=== PATIENT | male | born 1965 | race African-American/Black ===

== ENCOUNTER 2021-12-05 13:21 | Inpatient (IN) | payer MEDICAID, OTHER ==
[~2021-12-05] VITALS: Ht 182.9 cm; Wt 78.0 kg
[2021-12-05 14:17] LABS: CHLORIDE 107 mEq/L (98-107)
[2021-12-05 14:19] LABS: BASOPHILS % 0.5 % (0.0-2.0); EOSINOPHILS % 1.8 % (0.0-5.0); HEMOGLOBIN. 14.1 g/dL (14.0-18.0); LYMPHOCYTES % 23.4 % (20.0-50.0); MEAN CORPUSCULAR HEMOGLOBIN 29.5 pg (28.0-32.0); MEAN PLATELET VOLUME 8.8 fl (7.4-10.4); MONOCYTES % 9.6 % (2.0-8.0); NEUTROPHILS % 64.7 % (40.0-76.0); PLATELET 221 x1000/uL (130-400); RED BLOOD CELL COUNT 4.77 mill/uL (4.7-6.1); RED CELL DISTRIBUTION WIDTH 13.8 % (11.6-14.6)
[2021-12-05 14:34] LABS: ETHANOL BLOOD < 10 mg/dL
[2021-12-05] MEDS ORDERED: ACETAMINOPHEN 325MG TABLET PO PRN ×2 (19:45)
[2021-12-05] MEDS ORDERED: IPRATROPIUM/ALBUTEROL 0.5-3(2.5)MG/3ML NEB HHN PRN (19:45)
[2021-12-05] MEDS ORDERED: LORAZEPAM 0.5MG TABLET PO PRN (19:45)
[2021-12-05] MEDS ORDERED: HYDROCODONE/ACETAMINOPHEN 5/325MG TABLET PO PRN (19:45)
[2021-12-05] MEDS ORDERED: DOCUSATE SODIUM 100MG CAPSULE PO PRN (19:45)
[2021-12-05] MEDS ORDERED: ONDANSETRON HCL 4MG/2ML INJ IV PRN (19:45)
[2021-12-05] MEDS ORDERED: CLONIDINE 0.1MG TABLET PO PRN (19:45)
[2021-12-05] MEDS ORDERED: NALOXONE HCL 0.4MG/ML VIAL IV PRN (20:00)
[2021-12-05] MEDS ORDERED: RISPERIDONE 0.5MG TABLET PO SCH (20:00)
[2021-12-05 20:32] LABS: CLARITY URINE CLEAR (CLEAR); COLOR URINE YELLOW (YELLOW); KETONES URINE TRACE (NEGATIVE); LEUKOCYTE ESTERASE URINE NEGATIVE (NEGATIVE); NITRITE URINE NEGATIVE (NEGATIVE); OCCULT BLOOD URINE NEGATIVE (NEGATIVE); PH URINE >=9.0 (4.5-8.0); PROTEIN URINE 1+ (NEGATIVE); SPECIFIC GRAVITY URINE 1.029 (1.005-1.030)
[2021-12-05 20:46] LABS: *AMPHETAMINES SCREEN URINE NEGATIVE (NEGATIVE); *BARBITURATES SCREEN URINE NEGATIVE (NEGATIVE); *BENZODIAZEPINES SCREEN URINE NEGATIVE (NEGATIVE); *COCAINE SCREEN URINE NEGATIVE (NEGATIVE); CANNABINOID URINE SCREEN NEGATIVE (NEGATIVE); METHADONE URINE SCREEN NEGATIVE (NEGATIVE); OPIATES URINE SCREEN NEGATIVE (NEGATIVE); PHENCYCLIDINE URINE SCREEN NEGATIVE (NEGATIVE)
[2021-12-06 05:42] LABS: BASOPHILS % 0.6 % (0.0-2.0); EOSINOPHILS % 2.5 % (0.0-5.0); HEMATOCRIT. 40.2 % (42.0-52.0); HEMOGLOBIN. 13.5 g/dL (14.0-18.0); LYMPHOCYTES % 28.6 % (20.0-50.0); MEAN CORPUSCULAR HEMOGLOBIN 29.5 pg (28.0-32.0); MEAN CORPUSCULAR VOLUME 87.9 fL (80.0-94.0); MEAN PLATELET VOLUME 8.3 fl (7.4-10.4); MONOCYTES % 7.8 % (2.0-8.0); NEUTROPHILS % 60.5 % (40.0-76.0); PLATELET 187 x1000/uL (130-400); RED BLOOD CELL COUNT 4.57 mill/uL (4.7-6.1); RED CELL DISTRIBUTION WIDTH 13.7 % (11.6-14.6)
[2021-12-06 05:50] LABS: CHLORIDE 110 mEq/L (98-107)
[2021-12-06] MEDS: RISPERIDONE 0.5MG TABLET PO SCH ×2 (13:55→17:28)
[2021-12-06 15:49] VITALS: BP 157/83
[2021-12-06 15:51] VITALS: BP 157/83
[2021-12-06 20:00] VITALS: BP 119/79
[2021-12-07] VITALS: BP 150/80
[2021-12-07 04:00] VITALS: BP 133/89
[2021-12-07 08:00] VITALS: BP 126/75
[2021-12-07] MEDS: RISPERIDONE 0.5MG TABLET PO SCH ×3 (08:05→17:26)
[2021-12-07 12:00] VITALS: BP 117/82
[2021-12-07 16:00] VITALS: BP_SYST 132; BP_SYST 135; BP_DIAS 75; BP_DIAS 84
[2021-12-07 20:00] VITALS: BP 127/90
[2021-12-08] VITALS: BP 127/74
[2021-12-08 04:00] VITALS: BP 129/86
[2021-12-08 08:00] VITALS: BP 140/81
[2021-12-08] MEDS: VALPROIC ACID 250MG CAPSULE PO SCH ×2 (09:51→18:29)
[2021-12-08] MEDS: RISPERIDONE 0.5MG TABLET PO SCH ×4 (09:51→20:23)
[2021-12-08 12:00] VITALS: BP 136/82
[2021-12-08 16:00] VITALS: BP 138/80
[2021-12-08 20:00] VITALS: BP 124/88
[2021-12-09] VITALS: BP 122/77
[2021-12-09 02:15] LABS: VITAMIN B12 SERUM 552 pg/mL (211-911)
[2021-12-09 04:00] VITALS: BP 124/86
[2021-12-09 08:00] VITALS: BP 134/99
[2021-12-09] MEDS: VALPROIC ACID 250MG CAPSULE PO SCH ×2 (08:29→16:07)
[2021-12-09] MEDS: RISPERIDONE 0.5MG TABLET PO SCH ×4 (08:29→21:57)
[2021-12-09 12:00] VITALS: BP 147/95
[2021-12-09 16:00] VITALS: BP 140/83
[2021-12-09 20:00] VITALS: BP 127/79
[2021-12-10] VITALS: BP 125/86
[2021-12-10 04:00] VITALS: BP 119/82
[2021-12-10 08:00] VITALS: BP 127/83
[2021-12-10] MEDS: VALPROIC ACID 250MG CAPSULE PO SCH ×2 (08:30→16:01)
[2021-12-10] MEDS: RISPERIDONE 0.5MG TABLET PO SCH ×4 (08:30→21:15)
[2021-12-10 11:23] VITALS: BP 118/82
[2021-12-10 15:50] VITALS: BP 124/82
[2021-12-10 20:00] VITALS: BP 138/88
[2021-12-11] VITALS: BP 135/69
[2021-12-11 04:00] VITALS: BP 139/73
[2021-12-11 08:00] VITALS: BP 125/85
[2021-12-11] MEDS: RISPERIDONE 0.5MG TABLET PO SCH ×4 (08:11→20:57)
[2021-12-11] MEDS: VALPROIC ACID 250MG CAPSULE PO SCH ×2 (08:11→16:15)
[2021-12-11 12:00] VITALS: BP 129/86
[2021-12-11 15:35] VITALS: BP 137/83
[2021-12-11 20:00] VITALS: BP 113/83
[2021-12-12] VITALS: BP 129/83
[2021-12-12 04:00] VITALS: BP 126/87
[2021-12-12 08:00] VITALS: BP 137/82
[2021-12-12] MEDS: RISPERIDONE 0.5MG TABLET PO SCH ×4 (09:12→20:53)
[2021-12-12] MEDS: VALPROIC ACID 250MG CAPSULE PO SCH ×2 (09:12→16:42)
[2021-12-12 12:00] VITALS: BP 130/89
[2021-12-12 16:36] VITALS: BP 130/81
[2021-12-12 20:00] VITALS: BP 118/83
[2021-12-13] VITALS: BP 131/84
[2021-12-13 04:00] VITALS: BP 125/80
[2021-12-13 08:00] VITALS: BP 141/92
[2021-12-13] MEDS: VALPROIC ACID 250MG CAPSULE PO SCH (09:52)
[2021-12-13] MEDS: RISPERIDONE 0.5MG TABLET PO SCH (09:52)
[2021-12-13] MEDS ORDERED: VALP250C3 PO (11:31)
[2021-12-13] MEDS ORDERED: RISP05 PO (11:31)
[2021-12-13 11:47] VITALS: BP 129/88
== END 2021-12-13 13:31 | disposition home or self-care (01) | DRG 42 ==
LOC: ER 13:21 → MICUSO 17:20 → EDBEDREQ 17:26 → EDBEDREQTM 17:26 → 8WST 12-06 14:50
PROVIDERS: ADMIT Internal Medicine; ATTEND Internal Medicine
DX: G10 Huntington's disease (principal); E72.20 Disorder of urea cycle metabolism, unspecified; R26.89 Other abnormalities of gait and mobility
CPT/HCPCS: 36415; 70551; 71045; 80048; 80053; 80305; 80320; 81003; 82140; 82607; 84443; 85025; 93005; 97116; 97162; 97166; 97530; 97535; 99285; G0480

== ENCOUNTER 2024-07-12 08:58 | Inpatient (IN) | payer MEDICARE, MEDICAID ==
[~2024-07-12] VITALS: Ht 177.8 cm; Wt 79.8 kg
[~2024-07-12 08:58] MED LIST: RISP05 PO; VALP250C3 PO
[2024-07-12] MEDS: PIPERACILLIN/TAZO 3.375G/50ML 50 ML IV ONE (09:15)
[2024-07-12] MEDS: SODIUM CHLORIDE 0.9% 1,000 ML IV ONE ×2 (10:26→10:45)
[2024-07-12] MEDS: VANCOMYCIN 1G PREMIX 200 ML IV ONE (10:45)
[2024-07-12] MEDS: ACETAMINOPHEN 1000MG/100ML 100 ML IV ONE (10:45)
[2024-07-12 13:23] LABS: CALCIUM 8.7 mg/dL (8.7-10.4); CARBON DIOXIDE 26 mEq/L (21-32); CHLORIDE 106 mEq/L (98-107); LACTIC ACID 2.2 mmol/L (0.4-2.0); POTASSIUM 4.4 mEq/L (3.5-5.1); SODIUM 139 mEq/L (136-145)
[2024-07-12 13:25] LABS: BASOPHILS % 0.2 % (0.0-2.0); EOSINOPHILS % 0.1 % (0.0-5.0); HEMATOCRIT. 41.5 % (42.0-52.0); HEMOGLOBIN. 13.3 g/dL (14.0-18.0); LYMPHOCYTES % 7.9 % (20.0-50.0); MEAN CORPUSCULAR HEMOGLOBIN 31.6 pg (28.0-32.0); MEAN CORPUSCULAR HGB CONC 32.1 g/dL (31.0-37.0); MEAN CORPUSCULAR VOLUME 98.1 fL (80.0-94.0); MEAN PLATELET VOLUME 9.8 fl (7.4-10.4); MONOCYTES % 10.4 % (2.0-8.0); NEUTROPHILS % 81.4 % (40.0-76.0); PLATELET 117 x1000/uL (130-400); RED BLOOD CELL COUNT 4.23 mill/uL (4.7-6.1); WHITE BLOOD COUNT 10.6 x1000/uL (4.5-11.0)
[2024-07-12 13:28] LABS: CREATININE 1.1 mg/dL (0.6-1.3); GLUCOSE 106 mg/dL (70-105); UREA NITROGEN BLOOD 12 mg/dL (9-23)
[2024-07-12 13:29] LABS: ALBUMIN 3.6 g/dL (3.2-4.8)
[2024-07-12 13:30] LABS: ALANINE AMINOTRANSFERASE 9 IU/L (10-49); ASPARTATE AMINOTRANSFERASE 21 IU/L (<34); BILIRUBIN DIRECT 0.2 mg/dL (<=3.0); BILIRUBIN TOTAL 0.6 mg/dL (0.1-1.0); PROTEIN TOTAL 6.7 g/dL (6.0-8.3)
[2024-07-12 13:34] LABS: TROPONIN I HIGH SENSITIVITY < 4 ng/L (3.0-53)
[2024-07-12] MEDS ORDERED: ACETAMINOPHEN 325MG TABLET PO PRN (14:00)
[2024-07-12] MEDS ORDERED: IPRATROPIUM/ALBUTEROL 0.5-3(2.5)MG/3ML NEB NEB PRN (14:00)
[2024-07-12] MEDS ORDERED: ONDANSETRON HCL 4MG/2ML INJ IV PRN (14:00)
[2024-07-12] MEDS ORDERED: CLONIDINE 0.1MG TABLET PO PRN (14:00)
[2024-07-12] MEDS: SODIUM CHLORIDE 0.9% 1,000 ML IV SCH (14:00)
[2024-07-12] MEDS ORDERED: CEFEPIME 1GM IN DEXT 5% 50ML IV SCH (14:00)
[2024-07-12] MEDS: CEFEPIME 2GM/50ML DUPLEX 50 ML IV SCH (14:00)
[2024-07-12] MEDS ORDERED: LORAZEPAM 0.5MG TABLET PO PRN (14:00)
[2024-07-12] MEDS ORDERED: RISP0.5T79 PO (14:01)
[2024-07-12 14:32] LABS: CLARITY URINE CLEAR (CLEAR); COLOR URINE YELLOW (YELLOW); GLUCOSE URINE NEGATIVE (NEGATIVE); KETONES URINE NEGATIVE (NEGATIVE); NITRITE URINE NEGATIVE (NEGATIVE); OCCULT BLOOD URINE 1+ (NEGATIVE); PROTEIN URINE NEGATIVE (NEGATIVE); SPECIFIC GRAVITY URINE 1.017 (1.005-1.030)
[2024-07-12 14:33] LABS: LEUKOCYTE ESTERASE URINE NEGATIVE (NEGATIVE)
[2024-07-12 14:52] LABS: BACTERIA URINE RARE; SQUAMOUS EPITHELIAL CELL URINE NONE SEEN /lpf (RARE/1+); WBC URINE 0-2 /hpf (0-2); YEAST URINE NONE SEEN
[2024-07-12 14:54] LABS: *AMPHETAMINES SCREEN URINE NEGATIVE (NEGATIVE)
[2024-07-12 14:56] LABS: *BARBITURATES SCREEN URINE NEGATIVE (NEGATIVE); *BENZODIAZEPINES SCREEN URINE NEGATIVE (NEGATIVE); *COCAINE SCREEN URINE NEGATIVE (NEGATIVE); CANNABINOID URINE SCREEN NEGATIVE (NEGATIVE); ECSTASY MDMA SCREEN URINE NEGATIVE (NEGATIVE); METHADONE URINE SCREEN NEGATIVE (NEGATIVE); OPIATES URINE SCREEN NEGATIVE (NEGATIVE); PHENCYCLIDINE URINE SCREEN NEGATIVE (NEGATIVE)
[2024-07-12] MEDS: PANTOPRAZOLE SODIUM 40 MG/VIAL IV SCH (15:57)
[2024-07-12 16:00] VITALS: BP 132/79; PULSE 79; RESP 18; TEMP 36.44736; O2SAT 90
[2024-07-12] MEDS: ENOXAPARIN 40MG/0.4ML SYR SUBCUT SCH (16:05)
[2024-07-12 20:00] VITALS: BP 134/54; PULSE 78; RESP 20; TEMP 37.05852; O2SAT 99
[2024-07-12] MEDS: LACTOBACILLUS GG CAPSULE PO SCH (22:11)
[2024-07-12] MEDS: VALPROIC ACID 250MG CAPSULE PO SCH (22:11)
[2024-07-12] MEDS: RISPERIDONE 1MG TABLET PO SCH (22:12)
[2024-07-12] MEDS: ZOLPIDEM TARTRATE 5MG TABLET PO PRN (22:12)
[2024-07-13] VITALS (7 sets, daily range): BP systolic 115–143; BP diastolic 62–80; PULSE 62–84; RESP 14–20; TEMP 36.22512–37.05852; O2SAT 94–97
[2024-07-13 01:03] LABS: PROTHROMBIN TIME 11.6 sec (9.6-11.0)
[2024-07-13 01:11] LABS: CREATINE KINASE MB FRACTION 1.1 ng/mL (0.5-3.6); TROPONIN I HIGH SENSITIVITY 4 ng/L (3.0-53)
[2024-07-13 01:12] LABS: CREATINE KINASE 183 IU/L (46-171)
[2024-07-13] MEDS: VALPROIC ACID 250MG CAPSULE PO SCH (10:56)
[2024-07-13 15:57] LABS: CHLORIDE 108 mEq/L (98-107); POTASSIUM 3.8 mEq/L (3.5-5.1); SODIUM 141 mEq/L (136-145)
[2024-07-13 15:58] LABS: CARBON DIOXIDE 26 mEq/L (21-32)
[2024-07-13 15:59] LABS: CALCIUM 8.4 mg/dL (8.7-10.4)
[2024-07-13 16:03] LABS: CREATININE 0.9 mg/dL (0.6-1.3); GLUCOSE 158 mg/dL (70-105); UREA NITROGEN BLOOD 12 mg/dL (9-23)
[2024-07-13 22:19] LABS: BASOPHILS % 0.3 % (0.0-2.0); EOSINOPHILS % 3.3 % (0.0-5.0); HEMATOCRIT. 36.1 % (42.0-52.0); LYMPHOCYTES % 20.7 % (20.0-50.0); MEAN CORPUSCULAR HEMOGLOBIN 31.3 pg (28.0-32.0); MEAN CORPUSCULAR HGB CONC 33.2 g/dL (31.0-37.0); MEAN CORPUSCULAR VOLUME 94.2 fL (80.0-94.0); MEAN PLATELET VOLUME 9.6 fl (7.4-10.4); MONOCYTES % 13.1 % (2.0-8.0); NEUTROPHILS % 62.6 % (40.0-76.0); PLATELET 129 x1000/uL (130-400); RED BLOOD CELL COUNT 3.83 mill/uL (4.7-6.1); RED CELL DISTRIBUTION WIDTH 13.5 % (11.6-14.6); WHITE BLOOD COUNT 7.2 x1000/uL (4.5-11.0)
[2024-07-14] VITALS: BP 125/70; PULSE 72; RESP 18; TEMP 36.89184; O2SAT 98
[2024-07-14 04:00] VITALS: BP 129/78; PULSE 67; RESP 16; TEMP 36.61404; O2SAT 97
[2024-07-14 08:00] VITALS: BP 134/85; PULSE 72; RESP 20; TEMP 36.6696; O2SAT 90
[2024-07-14] MEDS: LACTOBACILLUS GG CAPSULE PO SCH (11:04)
[2024-07-14 12:00] VITALS: BP 148/92; PULSE 66; RESP 20; TEMP 36.6696; O2SAT 95
[2024-07-14 16:00] VITALS: BP 158/92; PULSE 59; RESP 16; TEMP 36.72516; O2SAT 92
[2024-07-14 20:00] VITALS: BP 132/83; PULSE 73; RESP 20; TEMP 36.28068; O2SAT 100
[2024-07-15] VITALS: BP 138/86; PULSE 68; RESP 19; TEMP 36.6696; O2SAT 95
[2024-07-15 04:00] VITALS: BP 120/72; PULSE 66; RESP 20; TEMP 36.72516; O2SAT 95
[2024-07-15 08:50] VITALS: BP 146/88; PULSE 68; RESP 18; TEMP 36.61404; O2SAT 99
[2024-07-15 12:20] VITALS: BP 147/84; PULSE 62; RESP 18; TEMP 36.3918; TEMP 36.39180; O2SAT 99
[2024-07-15 14:08] VITALS: BP 147/84; PULSE 62; TEMP 97; O2SAT 99
== END 2024-07-15 15:50 | disposition home health service (06) | DRG 871 ==
LOC: ER 08:58 → EDBEDREQ 13:32 → EDBEDREQTM 13:32 → 5WST 17:22
PROVIDERS: ADMIT Internal Medicine; ATTEND Internal Medicine
DX: A41.9 Sepsis, unspecified organism (principal); G82.50 Quadriplegia, unspecified; G93.41 Metabolic encephalopathy; G10 Huntington's disease; G25.9 Extrapyramidal and movement disorder, unspecified; M62.82 Rhabdomyolysis; E87.20 Acidosis, unspecified; F80.9 Developmental disorder of speech and language, unspecified; I10 Essential (primary) hypertension; R65.20 Severe sepsis without septic shock; R26.9 Unspecified abnormalities of gait and mobility; R53.81 Other malaise; R73.9 Hyperglycemia, unspecified; R74.8 Abnormal levels of other serum enzymes; Z20.822 Contact with and (suspected) exposure to COVID-19; R13.10 Dysphagia, unspecified; Z86.73 Personal history of transient ischemic attack (TIA), and cerebral infarction without residual deficits; Z88.0 Allergy status to penicillin; Z82.49 Family history of ischemic heart disease and other diseases of the circulatory system
CPT/HCPCS: 36415; 71045; 80048; 80076; 80305; 81003; 82550; 82553; 83605; 84145; 84484; 85025; 87426; 87804; 93005; 93970; 99291; J0692; J1650; J2470; J2543; J3370; J7030; J0131